=== PATIENT | female | born 1950 | race Caucasian/White ===

== ENCOUNTER 2020-05-18 07:23 | Day surgery (SDC) | payer MEDICARE ==
[~2020-05-18] VITALS: Ht 152.4 cm; Wt 63.0 kg
[2020-05-18] MEDS ORDERED: PAROXETINE PO (08:26)
[2020-05-18] MEDS ORDERED: AMLO-150 PO (08:26)
[2020-05-18] MEDS ORDERED: LISI40TA9 PO (08:26)
[2020-05-18] MEDS ORDERED: PIOG30TA68 PO (08:26)
[2020-05-18] MEDS ORDERED: TRIA1CAP3 PO (08:26)
[2020-05-18] MEDS ORDERED: HYDR-3342 PO (08:26)
[2020-05-18] MEDS ORDERED: CARV12.52 PO (08:26)
[2020-05-18] MEDS ORDERED: ALPR0.5T93 PO (08:26)
[2020-05-18] MEDS ORDERED: GLIM4TAB8 PO (08:26)
[2020-05-18] MEDS ORDERED: OMEP-110 PO (08:26)
[2020-05-18 08:27] VITALS: BP 121/82
[2020-05-18] MEDS ORDERED: CHLORHEXIDINE 15 ML UDC MM ONE (08:30)
[2020-05-18] MEDS ORDERED: LACTATED RINGERS 1,000 ML IV SCH (08:30)
[2020-05-18] MEDS ORDERED: LIDOCAINE-MPF 1%, 2ML INFIL ONE (08:30)
[2020-05-18 08:34] LABS: ANION GAP 10 mmol/L (5-15); CALCIUM 9.3 mg/dL (8.5-10.1); CHLORIDE 109 mmol/L (98-107); CREATININE 1.43 mg/dL (0.55-1.02)
[2020-05-18] MEDS ORDERED: HALOPERIDOL 5 MG/ML IV PRN (10:00)
[2020-05-18] MEDS ORDERED: hydrALAzine 20 MG/ML, 1ML IV PRN (10:00)
[2020-05-18] MEDS ORDERED: HYDROmorphone 1 MG/ML, 1ML INJ IVPush PRN (10:00)
[2020-05-18] MEDS ORDERED: LABETALOL 5MG/ML, 20ML IV PRN (10:00)
[2020-05-18] MEDS ORDERED: ACETAMINOPHEN 325 MG TABLET PO PRN (10:00)
[2020-05-18] MEDS ORDERED: OXYcodone 5 MG/5 ML ORAL.SOL UDC PO PRN (10:00)
[2020-05-18] MEDS ORDERED: MEPERIDINE/PF 25MG/0.5ML IVPush PRN (10:00)
[2020-05-18] MEDS ORDERED: FENTANYL PF 100 MCG/2ML IV PRN (10:00)
[2020-05-18] MEDS ORDERED: morphine SULFATE 10 MG/ML, 1ML IVPush PRN (10:00)
[2020-05-18] MEDS ORDERED: OMNIPAQUE 350 MG/ML, 50 ML BOTTLE ONE (10:00)
[2020-05-18] MEDS ORDERED: PROMETHAZINE 25 MG/ML, 1ML IVPush PRN (10:00)
[2020-05-18] MEDS ORDERED: ACETAMINOPHEN 650 MG/20.3 ML UDC ONE (10:49)
[2020-05-18] MEDS ORDERED: NEOSTIGMINE 1 MG/ML, 10ML ONE (16:29)
[2020-05-18] MEDS ORDERED: SUGAMMADEX 200 MG/2 ML IVPush ONE (16:29)
[2020-05-18] MEDS ORDERED: DEXAMETHASONE 4 MG/ML, 1ML ONE (16:29)
[2020-05-18] MEDS ORDERED: ROCURONIUM 10MG/ML,5ML ONE (16:29)
[2020-05-18] MEDS ORDERED: PROPOFOL 10 MG/ML, 20ML ONE (16:29)
[2020-05-18] MEDS ORDERED: GLYCOPYRROLATE 0.2MG/1ML, 5ML ONE (16:29)
[2020-05-18] MEDS ORDERED: ONDANSETRON 2MG/ML, 2ML ONE (16:29)
== END 2020-05-18 11:40 | disposition home or self-care (01) ==
LOC: OUT 07:23
PROVIDERS: ATTEND Internal Medicine Geriatric Medicine
DX: K80.50 Calculus of bile duct without cholangitis or cholecystitis without obstruction (principal); I10 Essential (primary) hypertension; K21.9 Gastro-esophageal reflux disease without esophagitis; E11.9 Type 2 diabetes mellitus without complications; Z20.822 Contact with and (suspected) exposure to COVID-19; Z79.84 Long term (current) use of oral hypoglycemic drugs; Z79.899 Other long term (current) drug therapy; Z88.8 Allergy status to other drugs, medicaments and biological substances
CPT/HCPCS: 43262; 43264; 74328; 80048; 82962; 87635; 93005; C1769; J1100; J2405; J2704; J2710; J7120; Q9967